=== PATIENT | female | born 1960 | race Caucasian/White ===

== ENCOUNTER → 2017-07-23 | Outpatient (CLI) | payer BC ==
[~2017-07-23] MED LIST: CLARITIN10 M3 PO; FIORICET,ESG1 TABLET PO
== END | disposition home or self-care (01) ==
LOC: CDC 09:08
DX: Z01.810 Encounter for preprocedural cardiovascular examination (principal); M79.641 Pain in right hand; M19.041 Primary osteoarthritis, right hand
CPT/HCPCS: 93000